=== PATIENT | male | born 1995 | race Hispanic/Latino ===

== ENCOUNTER 2018-05-11 09:48 | Emergency (ER) | payer SELFPAY ==
[~2018-05-11] VITALS: Ht 162.6 cm; Wt 59.1 kg
[2018-05-11 09:49] VITALS: BP 126/58
[2018-05-11] MEDS ORDERED: NS 1,000 ML IV ONE (10:15)
== END 2018-05-11 10:44 | disposition left against medical advice (07) ==
LOC: M ED 09:48
DX: R10.13 Epigastric pain (principal)